=== PATIENT | female | born 1995 | race African-American/Black ===

== ENCOUNTER 2018-12-14 06:23 | Emergency (ER) | payer OTHER ==
[~2018-12-14] VITALS: Ht 165.1 cm; Wt 75.9 kg
[2018-12-14] MEDS ORDERED: METOCLOPRAMIDE INJ 10MG/2ML VIAL (J2765) IV ONE (07:00)
[2018-12-14] MEDS ORDERED: NS 1,000 ML IV ONE (07:00)
[2018-12-14] MEDS ORDERED: ONDANSETRON 4 MG ORAL DISINTEGRATING TAB (Q0162 PER 1MG) PO ONE (07:15)
[2018-12-14] MEDS ORDERED: ZOFR4TAB16 PO (08:36)
[2018-12-14 08:51] VITALS: BP 120/56
== END 2018-12-14 09:06 | disposition home or self-care (01) ==
LOC: M ED 06:23 → EDBD 06:23 → M ED 09:06
DX: K52.9 Noninfective gastroenteritis and colitis, unspecified (principal); Z20.828 Contact with and (suspected) exposure to other viral communicable diseases
CPT/HCPCS: 99283; Q0162